=== PATIENT | male | born 1955 | race Caucasian/White ===

== ENCOUNTER 2020-06-02 08:59 | Emergency (ER) | payer OTHER ==
[~2020-06-02] VITALS: Ht 180.3 cm; Wt 93.0 kg
[2020-06-02 09:00] VITALS: BP 152/87
[2020-06-02] MEDS ORDERED: TORADOL IM STA (09:01)
[2020-06-02 09:06] VITALS: BP 157/82
--- NOTE | 2020-06-02 09:12 | ER.PDOC ---
General Chief Complaint: Trunk Pain/Injury Stated Complaint: FALL Time seen by MD: 09:10 Source: patient Exam Limitations: no limitations History of Present Illness Initial Comments Right rib pain status post fall this morning. Patient tripped after he lost his balance and fell hitting his right ribs against the arm of a chair. Pain is worse with movement. It eases up while laying still. He did not hit his head and no loss of consciousness. Timing/Duration: 1 hour Context: fall Location of pain/injury: chest Quality/Severity: moderate Remembers: injury, coming to hospital Allergies: Coded Allergies: No Known Allergies (Unverified , 06/02/20) Past Medical History Medical History: hypertension Surgical History: tonsillectomy Family History Significant Family History: no pertinent family hx Social History Alcohol Use: occassionally Drug Use: none Review of Systems Constitutional: no symptoms reported Respiratory: no symptoms reported Cardiovascular: see HPI Gastrointestinal: no symptoms reported Genitourinary: no symptoms reported Musculoskeletal: no symptoms reported All Other Systems: Reviewed and Negative Physical Exam General Appearance: No Apparent Distress, WD/WN Head: No Evidence of Injury Eyes: bilateral eye normal inspection, bilateral eye PERRL, bilateral eye EOMI Ears, Nose, Throat: Hearing Grossly Normal, No Evidence of ENT Injury, No Dental Injury Respiratory: normal breath sounds, no respiratory distress, tenderness (right mid posterior-lateral ribs) Cardiovascular/Chest: Normal Peripheral Pulses, Regular Rate, Rhythm, No Edema, No Gallop, No JVD, No Murmur Gastrointestinal: Normal Bowel Sounds, No Organomegaly, No Pulsatile Mass, Non Tender, Soft Back: Normal Inspection, No CVA Tenderness, No Vertebral Tenderness Extremities: No Evidence of Injury, Normal Range of Motion, Non-Tender, No Pedal Edema 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 as Tested, No Motor/Sensory Deficits, Alert, Normal Mood/Affect, Oriented x 3 Skin: Normal Color, Warm/Dry Crystal Coma Score Best Eye Response: (4) Open Spontaneously Best Verbal Response: (5) Oriented Best Motor Response: (6) Obeys Commands Results/Orders Results/Orders Orders - HIGINIO VARGAS MD Xr Ribs Rt W/Cxr (06/02/20 09:01) Ketorolac Tromethamine (Toradol) (06/02/20 09:01) Vital Signs Date Time Temp Pulse Resp B/P (MAP) Pulse Ox O2 Delivery O2 Flow Rate FiO2 06/02/20 09:06 98.1 67 18 157/82 (107) 97 Room Air 06/02/20 09:00 98.1 67 18 97 06/02/20 09:00 98.1 67 18 Administered Medications Medications (Trade) Dose Ordered Sig/Yaniv Route PRN Reason Start Time Stop Time Status Last Admin Dose Admin Ketorolac Tromethamine (Toradol) 60 mg STAT STAT IM 06/02/20 09:01 06/02/20 09:05 DC 06/02/20 09:11 60 MG EKG/XRAY/CT/US XRAY Comments: No right rib fracture ER DEPART Departure Time of Disposition: 10:16 Disposition: 01 HOME, SELF-CARE Impression: Primary Impression: Contusion of chest wall Qualified Codes: S20.211A - Contusion of right front wall of thorax, initial encounter Condition: Stable Referrals: PCP,UNKNOWN (PCP) PRIMARY CARE PROVIDER Additional Instructions: Ibuprofen Follow-up with your PCP in 1 week Return to ED if any concerns Duration or Time Spent with Pa: 20 min HIGINIO VARGAS MD Jun 02, 2020 09:12
--- NOTE | 2020-06-02 09:42 | DIREP ---
PROCEDURE:XRAY RIBS W/PA CHEST 3VWS-RT COMPARISON:None. INDICATIONS:pain/injury FINDINGS: RIBS:No fracture. OTHER:Limited exam due to area of concern not being marked beforehand.. CONCLUSION:No acute fracture Dictated by: Randall Plaza DO on 06/02/2020 at 09:35 AM
[2020-06-02 10:30] VITALS: BP 150/78
== END 2020-06-02 10:30 | disposition home or self-care (01) ==
LOC: ER 08:59
DX: S20.211A Contusion of right front wall of thorax, initial encounter (principal); I10 Essential (primary) hypertension; Z79.1 Long term (current) use of non-steroidal anti-inflammatories (NSAID); W01.190A Fall on same level from slipping, tripping and stumbling with subsequent striking against furniture, initial encounter; Y93.89 Activity, other specified; Y92.488 Other paved roadways as the place of occurrence of the external cause; Y99.8 Other external cause status
CPT/HCPCS: 99284; 71101-RT